=== PATIENT | female | born 2000 | race Hispanic/Latino ===

== ENCOUNTER 2021-09-16 14:53 | Emergency (ER) | payer OTHER ==
[~2021-09-16] VITALS: Ht 165.1 cm; Wt 90.7 kg
[2021-09-16] MEDS ORDERED: ACETAMINOPHEN 500 MG TABLET PO ONE (15:00)
[2021-09-16 15:33] LABS: HEMATOCRIT 44.4 % (36-48); MEAN CORPUSCULAR HEMOGLOBIN 27.8 pg (27.0-33.0); MEAN CORPUSCULAR HGB CONC 32.4 g/dL (32.0-36.0); MEAN CORPUSCULAR VOLUME 85.7 fL (79-99); PLATELET COUNT (AUTO) 353 K/uL (130-400); RED BLOOD CELL COUNT(AUTO) 5.18 MIL/uL (4.00-5.50); RED CELL DISTRIBUTION WIDTH 13.9 % (11.0-15.5); WHITE BLOOD COUNT (AUTO) 10.3 K/uL (4.8-10.8)
[2021-09-16 15:35] LABS: APPEARANCE,URINE Clear (CLEAR); BILIRUBIN,URINE Negative (NEGATIVE); COLOR,URINE Yellow (YELLOW); GLUCOSE, URINE (UA) Negative (NEGATIVE); KETONES,URINE Trace mg/dL (NEGATIVE); LEUKOCYTE ESTERASE ,URINE Trace (NEGATIVE); NITRATE,URINE Negative (NEGATIVE); OCCULT BLOOD,URINE Negative (NEGATIVE); PROTEIN,URINE Negative (NEGATIVE); UROBILINOGEN,URINE 0.2 mg/dL (0.2-1.0)
[2021-09-16 15:38] LABS: HCG,QUAL RESULT NEGATIVE (NEGATIVE)
[2021-09-16 15:43] LABS: CREATININE 0.7 mg/dL (0.5-1.5); POTASSIUM 3.6 mmol/L (3.5-5.1)
[2021-09-16 15:46] LABS: BACTERIA,URINE Few /HPF (None Seen); RBC,URINE 0-1 /HPF (0-1)
[2021-09-16 15:47] LABS: MUCUS,URINE Moderate LPF (None Seen); SQUAMOUS EPITHELIAL CELL,UR Few /HPF (0-2)
[2021-09-16 15:48] LABS: ALBUMIN 4.2 g/dL (3.5-5.0); BILIRUBIN,TOTAL 0.8 mg/dL (0.2-1.0); TOTAL PROTEIN, SERUM 8.5 g/dL (6.0-8.3)
[2021-09-16] MEDS ORDERED: 0.9%NACL 1000ML 1,000 ML IV ONE (16:00)
[2021-09-16] MEDS ORDERED: DICYCLOMINE 20MG (10MG/ML) AMP IM STA (16:16)
[2021-09-16] MEDS ORDERED: ONDANSETRON 4MG INJ IVP ONE (16:30)
[2021-09-16] MEDS ORDERED: FAMOTIDINE 20MG VIAL IV ONE (16:30)
[2021-09-16 16:36] LABS: BAND NEUTROPHILS % (MANUAL) 5 % (0-2); LYMPHOCYTES % (MANUAL) 5 % (22-44); MAN.DIFF COMMENT-IMPRESSION MANUAL DIFFERENTIAL; MONOCYTES % (MANUAL) 5 % (2-9); REACTIVE LYMPHOCYTES 2 % (0-0); SEGMENTED NEUTROPHILS % 83 % (40-70)
[2021-09-16] MEDS ORDERED: CEFTRIAXONE 1G VIAL IV ONE (17:00)
[2021-09-16 18:29] VITALS: BP 124/62
[2021-09-16] MEDS ORDERED: METOCLOPRAMIDE 10 MG/2 ML VIAL IVP ONE (18:30)
[2021-09-16] MEDS ORDERED: DiphenhydrAMINE HCL 50 MG/ML VIAL IV ONE (18:30)
[2021-09-16] MEDS ORDERED: L.AC1CAP6 PO (18:43)
[2021-09-16] MEDS ORDERED: CEPH500B PO (18:43)
[2021-09-16] MEDS ORDERED: ONDA4TAB10 PO (18:43)
[2021-09-16] MEDS ORDERED: DICY20TA2 PO (18:43)
== END 2021-09-16 19:00 | disposition home or self-care (01) ==
LOC: EDH 14:53
DX: N39.0 Urinary tract infection, site not specified (principal); K52.9 Noninfective gastroenteritis and colitis, unspecified; Z20.822 Contact with and (suspected) exposure to COVID-19
CPT/HCPCS: 36415; 80053; 81001; 81025; 83605; 85025; 87040 ×2; 87635; 87804 ×2; 87880; 96361; 96372; 96374; 96375; 99284; C9803; J0500; J0696; J1200; J2405; J2765; J3490; J7030